=== PATIENT | female | born 1940 | race Hispanic/Latino ===

== ENCOUNTER → 2024-01-01 | Outpatient (REF) | payer BC, OTHER | LOC: US 11:09 | PROVIDERS: ATTEND Nurse Practitioner | DX: R10.10 Upper abdominal pain, unspecified (principal); K82.1 Hydrops of gallbladder; K44.9 Diaphragmatic hernia without obstruction or gangrene; K14.0 Glossitis; I10 Essential (primary) hypertension; Z68.25 Body mass index [BMI] 25.0-25.9, adult | CPT/HCPCS: 76700 ==